=== PATIENT | female | born 1980 | race Caucasian/White ===

== ENCOUNTER 2018-07-04 18:48 | Emergency (ER) | payer OTHER ==
[~2018-07-04] VITALS: Ht 160 cm; Wt 71.7 kg
[~2018-07-04 18:48] MED LIST: LAMO50TA3 PO; [UNRECOGNIZED DRUG - OTHER] PO; hydrocodone PO
--- NOTE | 2018-07-04 19:29 | PHYS DOC ---
Past History Past Medical History: Other Past Surgical History: Cholecystectomy, , Tonsillectomy, Other Smoking: Cigarettes, Less than 1pk/day Additional Smoking Information: 1/4 PACK PLUS Alcohol Use: Rarely Drug Use: None Adult General Chief Complaint Chief Complaint: [facility] HPI 38-year-old female presents with left-sided facial abscess. Patient had a small red bump 2 days ago on the left side of her face. It was mildly pruritic. She put some Neosporin and a warm compress on it and went to bed. When she woke up the next morning it was much more swollen. Throughout the day today, the patient has noticed some red streaking down her neck and into her upper chest. It also seemed to involve her anterior ear. She has not had a fever at home. There has been some spontaneous drainage that she reports was a thin consistency , pinkish color. It has not drained in several hours and now has a scab. [facility] 1 g of Rocephin and advised she come to the hospital. She denies a history of abscesses or skin infections. She has no other complaints. Review of Systems Review of Systems Constitutional: Denies fever or chills [] Eyes: Denies change in visual acuity, redness, or eye pain [] HENT: Denies nasal congestion or sore throat [] Respiratory: Denies cough or shortness of breath [] Cardiovascular: No additional information not addressed in HPI [] GI: Denies abdominal pain, nausea, vomiting, bloody stools or diarrhea [] : Denies dysuria or hematuria [] Musculoskeletal: Denies back pain or joint pain [] Integument: Facial abscess[] Neurologic: Denies headache, focal weakness or sensory changes [] Endocrine: Denies polyuria or polydipsia [] All other systems were reviewed and found to be within normal limits, except as documented in this note. Current Medications Current Medications Current Medications Medications (Trade) Dose Ordered Sig/Edgard Start Time Stop Time Status Last Admin Dose Admin Sodium Chloride 1,000 ml @ 1,000 mls/hr 1X ONCE 07/04/18 19:30 07/04/18 20:29 UNV Allergies Allergies Allergies Coded Allergies Type Severity Reaction Last Updated Verified morphine Allergy Unknown Itching 03/12/14 Yes sulfamethoxazole Allergy Unknown 03/12/14 Yes trimethoprim Allergy Unknown 03/12/14 Yes Physical Exam Physical Exam Constitutional: Well developed, well nourished, no acute distress, non-toxic appearance. [] HENT: Normocephalic, atraumatic, bilateral external ears normal, oropharynx moist, no oral exudates, nose normal. [] Eyes: PERRLA, EOMI, conjunctiva normal, no discharge. [] Neck: Normal range of motion, no tenderness, supple, no stridor. [] Cardiovascular:Heart rate regular rhythm, no murmur [] Lungs & Thorax: Bilateral breath sounds clear to auscultation [] Abdomen: Bowel sounds normal, soft, no tenderness, no masses, no pulsatile masses. [] Skin: 2 cm x 6 cm fluctuant area of the left face with surrounding erythema extending down the neck and into the upper chest. The ear canal does not appear to be involved.[] Back: No tenderness, no CVA tenderness. [] Extremities: No tenderness, no cyanosis, no clubbing, ROM intact, no edema. [] Neurologic: Alert and oriented X 3, normal motor function, normal sensory function, no focal deficits noted. [] Psychologic: Affect normal, judgement normal, mood normal. [] Current Patient Data Vital Signs Vital Signs Date Time Temp Pulse Resp B/P (MAP) Pulse Ox O2 Delivery O2 Flow Rate FiO2 07/04/18 19:00 97.6 82 18 99 Room Air EKG EKG [] Radiology/Procedures Radiology/Procedures [] Course & Med Decision Making Course & Med Decision Making Pertinent Labs and Imaging studies reviewed. (See chart for details) Patient had an obvious purulent abscess with spreading cellulitis the left side of her face. I did I&D the abscess. See note below for further details. The patient already got 1 g of Rocephin at the urgent care. I've given her additional 100 mg of doxycycline orally. I will discharge her with 7 days of doxycycline 100 mg twice a day. I have advised her that if this does not improve she may need the abscess drained second time. If her condition worsens or she is worsening erythema and/or systemic fever she should come back to the hospital for admission. [] Dragon Disclaimer Dragon Disclaimer This electronic medical record was generated, in whole or in part, using a voice recognition dictation system. Incision and Drainage Indication: Left facial abscess 2 cm x 6 cm. I received verbal consent from the patient for I&D of the left side of her face. Procedure: The patient was positioned appropriately and the skin over the incision site was prepped with alcohol wipes. 1 mL of 2% lidocaine was used for skin anesthesia. After anesthesia was achieved, a 3 mm incision was made with a #11 scalpel. There was purulent drainage of 3-4 mL. I had a was able to explore and break up loculations with curved Mary's. A wound culture was performed. I expressed as much purulent drainage as I could. After that was covered with a bandage taped on 3 sides. There was not enough for packing. The patient tolerated the procedure well. Complications: None Departure Departure: Referrals: SHARON AC (PCP) HERIBERTO SIM DO Jul 04, 2018 19:29
[2018-07-04] MEDS ORDERED: IV NORMAL SALINE 1,000ML 1,000 ML IV ONE (19:30)
[2018-07-04 19:31] VITALS: BP 119/89
[2018-07-04 19:51] LABS: BASO % 0 % (0-3); EOS # 0.5 x10^3/uL (0.0-0.7); EOS % 4 % (0-3); HEMATOCRIT 40.9 % (36.0-47.0); HEMOGLOBIN 13.5 g/dL (12.0-15.5); LYMPH # 3.1 x10^3/uL (1.0-4.8); LYMPH % 23 % (24-48); MEAN CORPUSCULAR HEMOGLOBIN 29 pg (25-35); MEAN CORPUSCULAR HGB CONC 33 g/dL (31-37); MEAN CORPUSCULAR VOLUME 88 fL (79-100); MONO # 1.2 x10^3/uL (0.0-1.1); MONO % 9 % (0-9); NEUT # 8.6 x10^3uL (1.8-7.7); NEUT % 64 % (31-73); PLATELET COUNT 360 x10^3/uL (140-400); RED BLOOD COUNT 4.64 x10^6/uL (3.50-5.40); RED CELL DISTRIBUTION WIDTH 14.3 % (11.5-14.5); WHITE BLOOD COUNT 13.5 x10^3/uL (4.0-11.0)
[2018-07-04 20:05] LABS: ALBUMIN 3.4 g/dL (3.4-5.0); ALBUMIN/GLOBULIN RATIO 0.9 (1.0-1.7); CALCIUM 8.3 mg/dL (8.5-10.1); CREATININE 0.7 mg/dL (0.6-1.0); GFR 93.2; POTASSIUM 4.5 mmol/L (3.5-5.1); TOTAL BILIRUBIN 0.3 mg/dL (0.2-1.0)
[2018-07-04 20:06] LABS: TOTAL PROTEIN 7.2 g/dL (6.4-8.2)
[2018-07-04] MEDS ORDERED: DOXYCYCLINE HYCLATE 100 MG TABLET PO ONE (20:45)
[2018-07-04] MEDS ORDERED: DOXY100C2 PO (21:00)
== END 2018-07-04 21:07 | disposition home or self-care (01) ==
LOC: ER 18:48
DX: L02.01 Cutaneous abscess of face (principal); L03.211 Cellulitis of face; F17.210 Nicotine dependence, cigarettes, uncomplicated; Z88.5 Allergy status to narcotic agent; Z88.1 Allergy status to other antibiotic agents
CPT/HCPCS: 10060; 36415; 80053; 85025; 87070; 99284-25; J7030

== ENCOUNTER 2018-08-05 05:36 | Emergency (ER) | payer OTHER ==
[~2018-08-05] VITALS: Ht 157.5 cm; Wt 68.0 kg
[~2018-08-05 05:36] MED LIST changes: +DOXY100C2 PO
[2018-08-05 05:50] VITALS: BP 109/68
--- NOTE | 2018-08-05 05:52 | ED.ADGEN ---
Past History Past Medical History: Other Past Surgical History: Cholecystectomy, , Tonsillectomy, Other Smoking: Cigarettes, Less than 1pk/day Alcohol Use: Rarely Drug Use: None Adult General Chief Complaint Chief Complaint ".. I got cellulitis or abscess forming again..." HPI HPI Patient is a 38 year old female who presents with Lt facial cellulitis.. Pt. seen previously for similar 07/04/18 for similar presentation. At that time had I & D. Pt. states tonight return of edema, but lower on face. Pt. denies any any history of immunosuppression. Has tetanus updated within the past 5-6 years. Patient denies any specific ill contacts. Patient denies any travel. No obvious dental source of infection. Does have other areas of cystic acne.. Review of Systems Review of Systems Constitutional: Denies fever or chills [] Eyes: Denies change in visual acuity, redness, or eye pain [] HENT: Denies nasal congestion or sore throat []Complaints of Lt facial cellulitis Respiratory: Denies cough or shortness of breath [] Cardiovascular: No additional information not addressed in HPI [] GI: Denies abdominal pain, nausea, vomiting, bloody stools or diarrhea [] : Denies dysuria or hematuria [] Musculoskeletal: Denies back pain or joint pain [] Integument: Denies rash or skin lesions [] Neurologic: Denies headache, focal weakness or sensory changes [] Endocrine: Denies polyuria or polydipsia [] All other systems were reviewed and found to be within normal limits, except as documented in this note. Family History Family History Noncontributory Current Medications Current Medications Current Medications Medications (Trade) Dose Ordered Sig/Edgard Start Time Stop Time Status Last Admin Dose Admin Ceftriaxone Sodium (Rocephin Im) 1 gm 1X ONCE 08/05/18 06:00 08/05/18 06:01 DC 08/05/18 05:59 1 GM Ceftriaxone Sodium (Rocephin) 1 gm STK-MED ONCE 08/05/18 05:54 08/05/18 05:55 DC Doxycycline Hyclate 100 mg STK-MED ONCE 08/05/18 05:57 08/05/18 05:58 DC Doxycycline Hyclate (Vibra-Tab) 100 mg 1X ONCE 08/05/18 06:00 08/05/18 06:01 DC 08/05/18 05:59 100 MG Allergies Allergies Allergies Coded Allergies Type Severity Reaction Last Updated Verified morphine Allergy Unknown Itching 03/12/14 Yes sulfamethoxazole Allergy Unknown 03/12/14 Yes trimethoprim Allergy Unknown 03/12/14 Yes Physical Exam Physical Exam Constitutional: in moderate distress, non-toxic appearance. [] HENT: Normocephalic, atraumatic, bilateral external ears normal, oropharynx moist, no oral exudates, nose normal. Cystic Acne. Left lower facial cellulitis. Adenopathy at angle of mandible. No trismus. Poor dentition. Eyes: PERRLA, EOMI, conjunctiva normal, no discharge. [] Neck: Normal range of motion, no tenderness, supple, no stridor. [] Cardiovascular:Heart rate regular rhythm, no murmur [] Lungs & Thorax: Bilateral breath sounds equal at apexes and a few scattered wheezes on auscultation [] Abdomen: Bowel sounds normal, soft, no tenderness, no masses, no pulsatile masses. [] Skin: Warm, dry, no erythema, no rash. Except Facial cellulitis Back: No tenderness, no CVA tenderness. [] Extremities: No tenderness, no cyanosis, no clubbing, ROM intact, no edema. [] Neurologic: Alert and oriented X 3, normal motor function, normal sensory function, no focal deficits noted. [] Psychologic: Affect anxious, judgement normal, mood normal. [] Current Patient Data Vital Signs Vital Signs Date Time Temp Pulse Resp B/P (MAP) Pulse Ox O2 Delivery O2 Flow Rate FiO2 08/05/18 05:50 97.7 96 18 98 Room Air EKG EKG [] Radiology/Procedures Radiology/Procedures [] Course & Med Decision Making Course & Med Decision Making Pertinent Labs and Imaging studies reviewed. (See chart for details) Use moist compresses- salt or Epsom salts. Take doxycycline 100 twice a day. If it develops localization will need drainage of abscess. Follow-up primary care. Return if any concerns. Take Tylenol and ibuprofen for pain. May need surgical drainage. [] Final Impression Final Impression 1. Facial cellulitis[]Lt. Dragon Disclaimer Dragon Disclaimer This electronic medical record was generated, in whole or in part, using a voice recognition dictation system. KENNEDY ARBOLEDA MD Aug 05, 2018 05:52
[2018-08-05] MEDS ORDERED: cefTRIAXone IV Push 1 GM VIAL. IVP ONE (05:54)
[2018-08-05] MEDS ORDERED: DOXYCYCLINE HYCLATE 100 MG VIAL IV ONE (05:57)
[2018-08-05] MEDS ORDERED: DOXY100C2 PO (05:59)
[2018-08-05] MEDS ORDERED: cefTRIAXone IM 1 GM VIAL IM ONE (06:00)
[2018-08-05] MEDS ORDERED: DOXYCYCLINE HYCLATE 100 MG TABLET PO ONE (06:00)
== END 2018-08-05 06:13 | disposition home or self-care (01) ==
LOC: ER 05:36
DX: L03.211 Cellulitis of face (principal); F17.210 Nicotine dependence, cigarettes, uncomplicated; Z88.5 Allergy status to narcotic agent; Z88.1 Allergy status to other antibiotic agents; Z88.2 Allergy status to sulfonamides
CPT/HCPCS: 96372; 99283; J0696

== ENCOUNTER → 2019-10-17 | Outpatient (CLI) | payer OTHER ==
--- NOTE | 2019-10-17 13:10 | RAD ---
EXAM: Abdomen, 2 views. HISTORY: Pain. COMPARISON: 08/10/2016 FINDINGS: Frontal upright and supine views of the abdomen are obtained. There is a small amount of gas and stool within the colon. There is no evidence of bowel obstruction. There is no free air. There are cholecystectomy clips. There are 4 nonrib-bearing lumbar segments, a normal variant. There are healed rib fractures. The lung bases are clear. There are pelvic phleboliths. IMPRESSION: Nonobstructive bowel gas pattern. Electronically signed by: Sanjuana Michelle MD (10/17/2019 1:07 PM) [facility] [place]
== END | disposition home or self-care (01) ==
LOC: PMG 10:25
PROVIDERS: ATTEND Physician Assistant
DX: R10.31 Right lower quadrant pain (principal); R19.7 Diarrhea, unspecified; R11.2 Nausea with vomiting, unspecified
CPT/HCPCS: 74019

== ENCOUNTER → 2020-02-07 | Outpatient (CLI) | payer OTHER ==
--- NOTE | 2020-02-07 16:19 | RAD ---
SMALL BOWEL SERIES History: Right lower quadrant abdominal pain Comparison: None. Findings: Images from small bowel examination are submitted. There has been cholecystectomy. Calcifications in the right pelvis are probably due to phleboliths. Contrast is seen in the ascending colon at about 40 minutes. Small bowel is not significantly dilated, no stricture identified. Impression: 1. No significant abnormality is identified. Electronically signed by: Vic Quigley MD (02/07/2020 4:17 PM) [id number]
== END ==
LOC: RAD 09:24
PROVIDERS: ATTEND Internal Medicine Gastroenterology
DX: M25.851 Other specified joint disorders, right hip (principal); Z90.49 Acquired absence of other specified parts of digestive tract
CPT/HCPCS: 74250

== ENCOUNTER → 2020-02-26 | Outpatient (CLI) | payer OTHER ==
[~2020-02-26] MED LIST changes: +IOHEXOL 240 MG/ML 50ML VIAL. ONE; +IOHEXOL 240 MG/ML 50ML VIAL. PO ONE; +IOHEXOL 300 MG/ML 75 ML VIAL. IV ONE; +IOHEXOL 300 MG/ML 75 ML VIAL. ONE
[2020-02-26 11:21] LABS: CREATININE 0.9 mg/dL (0.6-1.0)
--- NOTE | 2020-02-26 12:02 | RAD ---
CT abdomen and pelvis with contrast History: Right lower quadrant pain Technique: After the administration of intravenous contrast, CT imaging was performed of the abdomen and pelvis. Oral contrast was given. Multiplanar images are reviewed. Exposure: One or more of the following individualized dose reduction techniques were utilized for this examination: 1. Automated exposure control 2. Adjustment of the mA and/or kV according to patient size 3. Use of iterative reconstruction technique. Comparison: April 06, 2009 Findings: There is a tiny likely calcified left lower lobe nodule at the lung base. There is no pleural fluid. There is no significant abnormality of the spleen, pancreas, adrenal glands. There is a small vague focus of hypodensity of the right lobe liver best seen image 18 series 2 about 0.5 cm otherwise too small to characterize, difficult to visualize on previous exam. Both kidneys enhance without hydronephrosis. There is probable small inferior right renal calculus about 0.2 cm. There has been cholecystectomy. There is diffuse at least moderate wall thickening variably throughout the colon, greatest ascending through descending colon. Bowel is not dilated. There is no free fluid or free air. There is questionable visualization of normal caliber appendix, no significant pericecal inflammatory type change. More focal density in the central pelvis is believed to be opacification of a larger diverticulum, other scattered colonic diverticula present. There are couple of likely cysts of the left adnexa, largest about 1.1 cm. Impression: 1. There is long segment colonic wall thickening variably throughout the colon, evidence of colitis. There is scattered mild colonic diverticulosis. 2. There is probable small inferior right renal calculus. 3. There is a small subtle hypodense lesion of the right lobe liver otherwise too small to accurately characterize, difficult to confidently visualize on previous exam. 4. There are couple of likely small cysts of the left adnexa. Electronically signed by: Vic Quigley MD (02/26/2020 11:59 AM) [id number]
[2020-02-26 15:39] LABS: FREE T4 1.11 ng/dL (0.76-1.46); THYROID STIM HORMONE (TSH) 0.793 uIU/mL (0.358-3.740)
== END | disposition home or self-care (01) ==
LOC: CT 09:52
PROVIDERS: ATTEND Surgery
DX: K57.30 Diverticulosis of large intestine without perforation or abscess without bleeding (principal); N20.0 Calculus of kidney; R91.1 Solitary pulmonary nodule; K52.9 Noninfective gastroenteritis and colitis, unspecified; E11.9 Type 2 diabetes mellitus without complications
CPT/HCPCS: 36415; 74177; 82565; 84439; 84443; 84480; Q9966; Q9967